=== PATIENT | male | born 1940 | race Caucasian/White ===

== ENCOUNTER → 2016-10-29 | Outpatient (CLI) | payer MEDICARE, BC ==
[~2016-10-29] MED LIST: 00186-0370-20 IH; 00186-0372-20 IH; ASPIRIN 32325 MG/TAB PO; ASPIRIN E.C. 8181 MG PO; ATROVENT INHALE14 GM IH; CEFTIN500 MG PO; CIPRO 500MG TA500 MG PO; CLARITIN 1010 MG/TAB PO; COREG 25MG25 MG/TAB PO; COREG12.5 MG PO; CPAP; DOXYCYCLINE 10100 MG PO; FERROUS SU325 MG/TAB PO; FORT1000TA; FORTAMET500 M1 PO; GLUCOPHAGE XR500 M1 PO; GLUCOPHAGE500 MG/TAB PO; NORCO 325 MG-51 TAB PO; NORVASC 10MG10 MG PO; PERCOCET 325 MG1 TA2 PO; PREDNISONE20 MG PO; PROAIR HFA0.09 MG/AC IH; THEO-24400 MG PO; THEO-DUR 2200 MG/TAB PO; VENTOLIN0.09 MG IH; XARELTO20 MG PO; ZITHROMAX 250M250 MG PO; ZITHROMAX500 M2 PO
== END ==
LOC: SUN.DIA 10:12
DX: E11.65 Type 2 diabetes mellitus with hyperglycemia (principal); Z79.84 Long term (current) use of oral hypoglycemic drugs; I10 Essential (primary) hypertension; E78.5 Hyperlipidemia, unspecified; E66.9 Obesity, unspecified; Z68.41 Body mass index [BMI] 40.0-44.9, adult; Z71.3 Dietary counseling and surveillance

== ENCOUNTER 2016-11-24 06:02 | Inpatient (IN) | payer MEDICARE, BC ==
[~2016-11-24] VITALS: Ht 167.6 cm; Wt 109.5 kg
[~2016-11-24 06:02] MED LIST changes: -00186-0370-20 IH; -00186-0372-20 IH; -ASPIRIN E.C. 8181 MG PO; -CEFTIN500 MG PO; -CIPRO 500MG TA500 MG PO; -COREG 25MG25 MG/TAB PO; -FORT1000TA; -GLUCOPHAGE XR500 M1 PO; -GLUCOPHAGE500 MG/TAB PO; -PROAIR HFA0.09 MG/AC IH; -ZITHROMAX 250M250 MG PO; -ZITHROMAX500 M2 PO
[2016-11-24] MEDS ORDERED: COREG12.5 MG PO (06:27)
[2016-11-24] MEDS ORDERED: GLUCOPHAGE XR500 M1 PO (06:27)
[2016-11-24 06:41] LABS: BASO # 0.1 (0.0-0.2); BASO % 0.6 % (0.0-2.0); EOS # 0.3 (0.0-0.7); EOS % 3.8 % (0-4.0); GRAN # 5.7 (1.4-6.5); HEMATOCRIT 42.8 % (42.0-52.0); HEMOGLOBIN 15.1 g/dl (13.5-18.0); LYMPH # 1.2 (1.2-3.4); LYMPH % 15.4 % (20.0-51.0); MEAN CELL VOLUME 93 fl (80.0-100.0); MEAN CORPUSCULAR HEMOGLOBIN 33 pg (27.0-31.0); MEAN CORPUSCULAR HGB CONC 35 g/dl (33.0-37.0); MONO # 0.7 (0.1-0.6); MONO % 8.6 % (1.7-9.3); PLATELET COUNT 118 K/mm3 (130-400); REDCELL DISTRIBUTION WIDTH-CV 14.8 % (11.5-14.5)
[2016-11-24 06:48] LABS: INR 1.1 (0.8-3.0)
[2016-11-24 06:51] LABS: PARTIAL THROMBOPLASTIN TIME 31.8 SECONDS (26.0-37.0)
[2016-11-24 06:52] LABS: BILIRUBIN,TOTAL 1.2 mg/dL (0.0-1.0); CREATININE, serum 0.8 mg/dL (0.66-1.25); POTASSIUM 4.2 mmol/L (3.4-5.0); TOTAL PROTEIN 7.1 gm/dL (6.4-8.2)
[2016-11-24 07:05] LABS: TROPONIN-I 0.016 ng/mL (0.000-0.034)
[2016-11-24] MEDS ORDERED: 00186-0370-20 IH (07:07)
[2016-11-24 08:45] VITALS: BP 141/88; PULSE 65; TEMP 97.7
[2016-11-24 10:53] VITALS: BP 148/82; PULSE 87; TEMP 97.8
[2016-11-24 12:59] LABS: MAGNESIUM 1.5 mg/dL (1.6-2.3)
[2016-11-24 13:12] LABS: B-TYPE NATRIURETIC PEPTIDE 214 pg/mL (0-450)
[2016-11-24 13:13] LABS: TROPONIN-I < 0.012 ng/mL (0.000-0.034)
[2016-11-24 15:20] VITALS: BP 186/74; PULSE 89; TEMP 98
[2016-11-24 19:54] VITALS: BP 166/103; PULSE 91; TEMP 97.9
[2016-11-24 23:41] VITALS: BP 140/60; PULSE 87; TEMP 98.2
[2016-11-25 04:06] VITALS: BP 140/68; PULSE 55; TEMP 98.2
[2016-11-25 08:32] VITALS: BP 135/81; PULSE 77; TEMP 98.4
[2016-11-25] MEDS ORDERED: 00186-0372-20 IH (11:01)
[2016-11-25 12:39] VITALS: BP 128/77; PULSE 75; TEMP 98.1
[2016-11-25 16:07] VITALS: BP 140/73; PULSE 70; TEMP 97.9
[2016-11-25 19:26] VITALS: BP 162/79; PULSE 52; TEMP 97.8
[2016-11-25 23:16] VITALS: BP 160/85; PULSE 60; TEMP 98.9
[2016-11-26 03:10] VITALS: BP 153/77; PULSE 69; TEMP 97.5
[2016-11-26 07:13] LABS: ADJUSTED CALCIUM 8.9 mg/dL (8.4-10.2); ALBUMIN 4.2 gm/dL (3.5-5.0); BILIRUBIN,TOTAL 1.8 mg/dL (0.0-1.0); CALCIUM 9.1 mg/dL (8.4-10.2); CREATININE, serum 0.81 mg/dL (0.66-1.25); POTASSIUM 3.6 mmol/L (3.4-5.0); TOTAL PROTEIN 6.9 gm/dL (6.4-8.2)
[2016-11-26 07:26] VITALS: BP 137/75; PULSE 74; TEMP 97.8
[2016-11-26] MEDS ORDERED: COREG 25MG25 MG/TAB PO (10:35)
[2016-11-26] MEDS ORDERED: ASPIRIN E.C. 8181 MG PO (11:08)
== END 2016-11-26 13:33 | disposition home or self-care (01) | DRG 292 ==
LOC: COL.ER 06:02 → MEDICAL 07:39 → COL.ER 07:39 → MEDICAL 07:40
PROVIDERS: Emergency Medicine; Internal Medicine Cardiovascular Disease
DX: I11.0 Hypertensive heart disease with heart failure (principal); J44.1 Chronic obstructive pulmonary disease with (acute) exacerbation; E11.9 Type 2 diabetes mellitus without complications; Z95.2 Presence of prosthetic heart valve; Z87.891 Personal history of nicotine dependence; I50.33 Acute on chronic diastolic (congestive) heart failure
CPT/HCPCS: OP; 99222-AI; 99233-AI; J1650; J1815; J1940

== ENCOUNTER 2016-12-13 00:44 | Emergency (ER) | payer MEDICARE, BC ==
[~2016-12-13] VITALS: Ht 170.2 cm; Wt 127.3 kg
[~2016-12-13 00:44] MED LIST changes: +00186-0370-20 IH; +00186-0372-20 IH; +ASPIRIN E.C. 8181 MG PO; +COREG 25MG25 MG/TAB PO; +GLUCOPHAGE XR500 M1 PO
[2016-12-13 00:47] VITALS: TEMP 97
[2016-12-13 01:38] LABS: BASO # 0.1 (0.0-0.2); BASO % 0.6 % (0.0-2.0); EOS # 0.4 (0.0-0.7); GRAN # 5.7 (1.4-6.5); GRAN % 67.9 % (42.2-75.2); HEMATOCRIT 41.8 % (42.0-52.0); HEMOGLOBIN 14.9 g/dl (13.5-18.0); LYMPH # 1.4 (1.2-3.4); LYMPH % 16.9 % (20.0-51.0); MEAN CELL VOLUME 94 fl (80.0-100.0); MEAN CORPUSCULAR HEMOGLOBIN 34 pg (27.0-31.0); MEAN CORPUSCULAR HGB CONC 36 g/dl (33.0-37.0); MEAN PLATELET VOLUME 10.4 fl (7.4-10.4); MONO # 0.8 (0.1-0.6); PLATELET COUNT 135 K/mm3 (130-400); RED BLOOD COUNT 4.43 M/mm3 (4.20-5.60); REDCELL DISTRIBUTION WIDTH-CV 14.9 % (11.5-14.5); WHITE BLOOD COUNT 8.5 K/mm3 (4.8-10.8)
[2016-12-13 01:47] LABS: PH 5 (5-8); SQUAMOUS EPITHELIAL 0-2 /hpf; URINE APPEARANCE Clear; URINE BACTERIA None Seen /hpf; URINE BILIRUBIN Negative (NEGATIVE); URINE BLOOD 3+ (NEGATIVE); URINE COLOR Yellow; URINE GLUCOSE 1+ (NEGATIVE); URINE KETONE Negative (NEGATIVE); URINE RBC 20-50 /hpf; URINE UROBILINOGEN Negative (NEGATIVE)
[2016-12-13 01:48] LABS: ALBUMIN 4.1 gm/dL (3.5-5.0); BILIRUBIN,TOTAL 1.2 mg/dL (0.0-1.0); CALCIUM 9.1 mg/dL (8.4-10.2); CREATININE, serum 0.73 mg/dL (0.66-1.25); MAGNESIUM 1.9 mg/dL (1.6-2.3); PHOSPHOROUS 3.9 mg/dL (2.5-4.5); POTASSIUM 4.8 mmol/L (3.4-5.0)
[2016-12-13 02:00] LABS: TROPONIN-I 0.019 ng/mL (0.000-0.034)
[2016-12-13] MEDS ORDERED: CEFTIN500 MG PO (03:56)
[2016-12-13 04:00] VITALS: BP 143/93; PULSE 59
[2016-12-13] MEDS ORDERED: FORT1000TA (04:14)
[2016-12-13] MEDS ORDERED: ASPIRIN E.C. 8181 MG PO (04:16)
[2016-12-13] MEDS ORDERED: COREG 25MG25 MG/TAB PO (04:16)
== END 2016-12-13 04:31 | disposition home or self-care (01) ==
LOC: COL.ER 00:44
PROVIDERS: Emergency Medicine
DX: J44.9 Chronic obstructive pulmonary disease, unspecified (principal); N39.0 Urinary tract infection, site not specified; R31.9 Hematuria, unspecified; E11.9 Type 2 diabetes mellitus without complications; Z95.2 Presence of prosthetic heart valve; I11.0 Hypertensive heart disease with heart failure; I50.9 Heart failure, unspecified; N20.0 Calculus of kidney; Z79.82 Long term (current) use of aspirin; Z79.84 Long term (current) use of oral hypoglycemic drugs
CPT/HCPCS: J0696; Q9967

== ENCOUNTER 2016-12-31 00:28 | Emergency (ER) | payer MEDICARE, BC ==
[~2016-12-31] VITALS: Ht 167.6 cm; Wt 79.5 kg
[~2016-12-31 00:28] MED LIST changes: -GLUCOPHAGE500 MG/TAB PO; -PROAIR HFA0.09 MG/AC IH; -ZITHROMAX 250M250 MG PO; -ZITHROMAX500 M2 PO
[2016-12-31 00:30] VITALS: TEMP 98.2
[2016-12-31 01:08] LABS: VENOUS BLOOD GAS BE 0.9 (-4-4); VENOUS BLOOD GAS SAO2 61.8 % (60-80)
[2016-12-31 01:09] LABS: VENOUS BLOOD GAS SITE VENIPUNCTURE
[2016-12-31 01:10] LABS: BASO # 0.1 (0.0-0.2); BASO % 0.8 % (0.0-2.0); EOS # 0.3 (0.0-0.7); EOS % 4.2 % (0-4.0); GRAN # 4.9 (1.4-6.5); GRAN % 64.1 % (42.2-75.2); HEMOGLOBIN 15.2 g/dl (13.5-18.0); LYMPH # 1.6 (1.2-3.4); LYMPH % 21.1 % (20.0-51.0); MEAN CELL VOLUME 94 fl (80.0-100.0); MEAN CORPUSCULAR HEMOGLOBIN 34 pg (27.0-31.0); MEAN CORPUSCULAR HGB CONC 36 g/dl (33.0-37.0); MEAN PLATELET VOLUME 10.2 fl (7.4-10.4); MONO # 0.7 (0.1-0.6); PLATELET COUNT 139 K/mm3 (130-400); RED BLOOD COUNT 4.46 M/mm3 (4.20-5.60); REDCELL DISTRIBUTION WIDTH-CV 14.1 % (11.5-14.5); WHITE BLOOD COUNT 7.6 K/mm3 (4.8-10.8)
[2016-12-31 01:23] LABS: CALCIUM 8.8 mg/dL (8.4-10.2); CREATININE, serum 0.74 mg/dL (0.66-1.25); POTASSIUM 4.4 mmol/L (3.4-5.0)
[2016-12-31] MEDS ORDERED: COREG12.5 MG PO (01:23)
[2016-12-31] MEDS ORDERED: THEO-DUR 2200 MG/TAB PO (01:25)
[2016-12-31] MEDS ORDERED: GLUCOPHAGE XR500 M1 PO (01:27)
[2016-12-31] MEDS ORDERED: GLUCOPHAGE500 MG/TAB PO (01:28)
[2016-12-31 01:34] LABS: TROPONIN-I 0.015 ng/mL (0.000-0.034)
[2016-12-31] MEDS ORDERED: ATROVENT INHALE14 GM IH (01:50)
[2016-12-31] MEDS ORDERED: PREDNISONE20 MG PO (01:51)
[2016-12-31] MEDS ORDERED: DOXYCYCLINE 10100 MG PO (01:51)
[2016-12-31 02:58] VITALS: BP 148/84; PULSE 64
== END 2016-12-31 02:35 | disposition home or self-care (01) ==
LOC: COL.ER 00:28
PROVIDERS: Emergency Medicine
DX: J44.0 Chronic obstructive pulmonary disease with (acute) lower respiratory infection (principal); J20.9 Acute bronchitis, unspecified; J44.1 Chronic obstructive pulmonary disease with (acute) exacerbation; I10 Essential (primary) hypertension; E11.9 Type 2 diabetes mellitus without complications; Z87.891 Personal history of nicotine dependence
CPT/HCPCS: J7512

== ENCOUNTER → 2016-12-31 | Outpatient (CLI) | payer MEDICARE, BC ==
[~2016-12-31] MED LIST changes: +CEFTIN500 MG PO; +FORT1000TA; +GLUCOPHAGE500 MG/TAB PO; +PROAIR HFA0.09 MG/AC IH; +ZITHROMAX 250M250 MG PO; +ZITHROMAX500 M2 PO
== END ==
LOC: SUN.DIA 09:33
DX: E11.65 Type 2 diabetes mellitus with hyperglycemia (principal); E66.9 Obesity, unspecified; Z68.42 Body mass index [BMI] 45.0-49.9, adult; Z71.3 Dietary counseling and surveillance; E78.5 Hyperlipidemia, unspecified; I10 Essential (primary) hypertension; G47.33 Obstructive sleep apnea (adult) (pediatric); J44.9 Chronic obstructive pulmonary disease, unspecified; I48.0 Paroxysmal atrial fibrillation

== ENCOUNTER 2017-01-10 01:15 | Emergency (ER) | payer MEDICARE, BC ==
[~2017-01-10] VITALS: Ht 170.2 cm; Wt 125.0 kg
[~2017-01-10 01:15] MED LIST changes: +GLUCOPHAGE500 MG/TAB PO
[2017-01-10] MEDS ORDERED: 00186-0372-20 IH (01:33)
[2017-01-10 01:35] LABS: BASO # 0.1 (0.0-0.2); BASO % 0.5 % (0.0-2.0); EOS # 0.2 (0.0-0.7); EOS % 1.8 % (0-4.0); GRAN # 8.2 (1.4-6.5); GRAN % 73.2 % (42.2-75.2); HEMATOCRIT 47.4 % (42.0-52.0); LYMPH # 1.4 (1.2-3.4); LYMPH % 12.1 % (20.0-51.0); MEAN CELL VOLUME 93 fl (80.0-100.0); MEAN CORPUSCULAR HEMOGLOBIN 34 pg (27.0-31.0); MEAN CORPUSCULAR HGB CONC 36 g/dl (33.0-37.0); MEAN PLATELET VOLUME 10.1 fl (7.4-10.4); MONO # 1.3 (0.1-0.6); MONO % 11.7 % (1.7-9.3); PLATELET COUNT 131 K/mm3 (130-400); RED BLOOD COUNT 5.08 M/mm3 (4.20-5.60); REDCELL DISTRIBUTION WIDTH-CV 13.2 % (11.5-14.5); WHITE BLOOD COUNT 11.3 K/mm3 (4.8-10.8)
[2017-01-10 01:45] LABS: ADJUSTED CALCIUM 8.6 mg/dL (8.4-10.2); ALBUMIN 4.4 gm/dL (3.5-5.0); BILIRUBIN,TOTAL 1.5 mg/dL (0.0-1.0); CALCIUM 8.9 mg/dL (8.4-10.2); CREATININE, serum 0.82 mg/dL (0.66-1.25); INR 1.1 (0.8-3.0); POTASSIUM 4.2 mmol/L (3.4-5.0); PROTHROMBIN TIME 12.3 SECONDS (9.7-12.8); TOTAL PROTEIN 7.4 gm/dL (6.4-8.2)
[2017-01-10 01:48] LABS: PARTIAL THROMBOPLASTIN TIME 30.6 SECONDS (26.0-37.0)
[2017-01-10 01:57] LABS: TROPONIN-I 0.023 ng/mL (0.000-0.034)
[2017-01-10 02:12] LABS: ARTERIAL BLD GAS O2 SATURATION 95.1 % (92-100); ARTERIAL BLD GAS TCO2 CT 26.8; ARTERIAL BLOOD GAS BASE EXCESS 1.6 (-2-2); ARTERIAL BLOOD GAS HCO3 25.6 meq/L (22-26); ARTERIAL BLOOD GAS PHT 7.44 C (7.35-7.45); ARTERIAL BLOOD GAS PO2 76.3 mmHg (80-100); ARTERIAL BLOOD GAS PO2T 76.3 (80-100); ARTERIAL BLOOD GAS pH 7.44 (7.35-7.45); OXYHEMOGLOBIN 93.4 %
[2017-01-10 02:14] LABS: ALLEN TEST YES; ALLENS TEST RESULT PASS; ATS? YES
[2017-01-10 03:06] LABS: PH 5 (5-8); URINE APPEARANCE Hazy; URINE BILIRUBIN Negative (NEGATIVE); URINE BLOOD 3+ (NEGATIVE); URINE COLOR Yellow; URINE GLUCOSE 2+ (NEGATIVE); URINE KETONE Negative (NEGATIVE); URINE RBC 20-50 /hpf; URINE UROBILINOGEN Negative (NEGATIVE); URINE WBC 0-2 /hpf
[2017-01-10 03:55] VITALS: BP 118/89; PULSE 72; TEMP 97.7
== END 2017-01-10 04:00 | disposition home or self-care (01) ==
LOC: COL.ER 01:15
PROVIDERS: Emergency Medicine
DX: R06.02 Shortness of breath (principal); I48.91 Unspecified atrial fibrillation; J44.9 Chronic obstructive pulmonary disease, unspecified; I11.0 Hypertensive heart disease with heart failure; I50.9 Heart failure, unspecified; E11.9 Type 2 diabetes mellitus without complications; Z79.84 Long term (current) use of oral hypoglycemic drugs
CPT/HCPCS: G0463; J0696; J1940; J7030

== ENCOUNTER 2017-02-18 13:05 | Emergency (ER) | payer MEDICARE, BC ==
[~2017-02-18] VITALS: Ht 167.6 cm; Wt 127.3 kg
[2017-02-18 13:07] VITALS: TEMP 98
[2017-02-18 13:39] LABS: BASO # 0.1 (0.0-0.2); BASO % 0.7 % (0.0-2.0); EOS # 0.4 (0.0-0.7); EOS % 5.3 % (0-4.0); GRAN # 6.1 (1.4-6.5); GRAN % 73.2 % (42.2-75.2); HEMATOCRIT 44.9 % (42.0-52.0); HEMOGLOBIN 15.8 g/dl (13.5-18.0); LYMPH % 11.9 % (20.0-51.0); MEAN CELL VOLUME 95 fl (80.0-100.0); MEAN CORPUSCULAR HEMOGLOBIN 33 pg (27.0-31.0); MEAN CORPUSCULAR HGB CONC 35 g/dl (33.0-37.0); MEAN PLATELET VOLUME 10.2 fl (7.4-10.4); MONO # 0.7 (0.1-0.6); MONO % 8.4 % (1.7-9.3); PLATELET COUNT 131 K/mm3 (130-400); RED BLOOD COUNT 4.75 M/mm3 (4.20-5.60); REDCELL DISTRIBUTION WIDTH-CV 13.9 % (11.5-14.5); WHITE BLOOD COUNT 8.3 K/mm3 (4.8-10.8)
[2017-02-18 13:50] LABS: ADJUSTED CALCIUM 8.7 mg/dL (8.4-10.2); ALBUMIN 4.2 gm/dL (3.5-5.0); CALCIUM 8.9 mg/dL (8.4-10.2); CREATININE, serum 0.78 mg/dL (0.66-1.25); POTASSIUM 4.3 mmol/L (3.4-5.0)
[2017-02-18 14:01] LABS: TROPONIN-I 0.017 ng/mL (0.000-0.034)
[2017-02-18 14:41] VITALS: BP 145/83; PULSE 72
[2017-02-18] MEDS ORDERED: PREDNISONE20 MG PO (14:45)
== END 2017-02-18 15:00 | disposition home or self-care (01) ==
LOC: COL.ER 13:05
PROVIDERS: Emergency Medicine
DX: J44.1 Chronic obstructive pulmonary disease with (acute) exacerbation (principal); T48.996A Underdosing of other agents primarily acting on the respiratory system, initial encounter; Z91.138 Patient's unintentional underdosing of medication regimen for other reason; E11.9 Type 2 diabetes mellitus without complications; I10 Essential (primary) hypertension; Z79.84 Long term (current) use of oral hypoglycemic drugs
CPT/HCPCS: J7512

== ENCOUNTER → 2017-03-04 | Outpatient (CLI) | payer MEDICARE, BC ==
[~2017-03-04] MED LIST changes: +CIPRO 500MG TA500 MG PO; +PROAIR HFA0.09 MG/AC IH; +ZITHROMAX 250M250 MG PO; +ZITHROMAX500 M2 PO
== END ==
LOC: SUN.DIA 09:35
DX: E11.9 Type 2 diabetes mellitus without complications (principal); E78.5 Hyperlipidemia, unspecified; I10 Essential (primary) hypertension; E66.9 Obesity, unspecified; Z68.41 Body mass index [BMI] 40.0-44.9, adult; Z71.3 Dietary counseling and surveillance; Z87.891 Personal history of nicotine dependence
CPT/HCPCS: G0270

== ENCOUNTER 2017-03-06 03:34 | Emergency (ER) | payer MEDICARE, BC ==
[~2017-03-06] VITALS: Ht 170.2 cm; Wt 125.0 kg
[~2017-03-06 03:34] MED LIST changes: -CIPRO 500MG TA500 MG PO; -PROAIR HFA0.09 MG/AC IH; -ZITHROMAX 250M250 MG PO; -ZITHROMAX500 M2 PO
[2017-03-06 03:38] VITALS: BP 144/66; TEMP 98.7
[2017-03-06 04:32] LABS: VENOUS BLOOD GAS BE 2.1 (-4-4); VENOUS BLOOD GAS SAO2 85.7 % (60-80)
[2017-03-06 04:32] LABS: BASO # 0.1 (0.0-0.2); BASO % 0.6 % (0.0-2.0); EOS # 0.4 (0.0-0.7); EOS % 4.6 % (0-4.0); GRAN # 5.9 (1.4-6.5); HEMATOCRIT 43.2 % (42.0-52.0); HEMOGLOBIN 15.4 g/dl (13.5-18.0); LYMPH # 1.3 (1.2-3.4); LYMPH % 15.2 % (20.0-51.0); MEAN CELL VOLUME 94 fl (80.0-100.0); MEAN CORPUSCULAR HEMOGLOBIN 33 pg (27.0-31.0); MEAN CORPUSCULAR HGB CONC 36 g/dl (33.0-37.0); MEAN PLATELET VOLUME 10.2 fl (7.4-10.4); MONO # 0.8 (0.1-0.6); MONO % 9.2 % (1.7-9.3); PLATELET COUNT 138 K/mm3 (130-400); RED BLOOD COUNT 4.61 M/mm3 (4.20-5.60); REDCELL DISTRIBUTION WIDTH-CV 13.6 % (11.5-14.5); WHITE BLOOD COUNT 8.4 K/mm3 (4.8-10.8)
[2017-03-06 04:33] LABS: VENOUS BLOOD GAS SITE VENIPUNCTURE
[2017-03-06 04:40] LABS: CALCIUM 8.8 mg/dL (8.4-10.2); CREATININE, serum 0.75 mg/dL (0.66-1.25); POTASSIUM 4.1 mmol/L (3.4-5.0)
[2017-03-06 04:52] LABS: TROPONIN-I 0.016 ng/mL (0.000-0.034)
[2017-03-06] MEDS ORDERED: PREDNISONE20 MG PO (05:12)
[2017-03-06] MEDS ORDERED: ZITHROMAX 250M250 MG PO (05:12)
[2017-03-06] MEDS ORDERED: ATROVENT INHALE14 GM IH (05:12)
[2017-03-06 05:31] VITALS: PULSE 69
== END 2017-03-06 05:36 | disposition home or self-care (01) ==
LOC: COL.ER 03:34
PROVIDERS: Emergency Medicine
DX: J44.1 Chronic obstructive pulmonary disease with (acute) exacerbation (principal); E11.9 Type 2 diabetes mellitus without complications; I10 Essential (primary) hypertension; E78.5 Hyperlipidemia, unspecified; G47.33 Obstructive sleep apnea (adult) (pediatric); Z90.49 Acquired absence of other specified parts of digestive tract; Z79.82 Long term (current) use of aspirin; Z79.84 Long term (current) use of oral hypoglycemic drugs
CPT/HCPCS: J1940; J7512

== ENCOUNTER 2017-03-22 09:17 | Emergency (ER) | payer MEDICARE, BC ==
[~2017-03-22] VITALS: Ht 167.6 cm; Wt 125.0 kg
[~2017-03-22 09:17] MED LIST changes: +ZITHROMAX 250M250 MG PO
[2017-03-22 09:19] VITALS: BP 137/60; TEMP 97.8
[2017-03-22 11:15] VITALS: PULSE 72
== END 2017-03-22 11:14 | disposition home or self-care (01) ==
LOC: COL.ER 09:17
DX: K59.00 Constipation, unspecified (principal); E11.9 Type 2 diabetes mellitus without complications; J44.9 Chronic obstructive pulmonary disease, unspecified; I10 Essential (primary) hypertension; Z87.19 Personal history of other diseases of the digestive system; Z79.84 Long term (current) use of oral hypoglycemic drugs; Z79.82 Long term (current) use of aspirin

== ENCOUNTER 2017-03-25 03:29 | Emergency (ER) | payer MEDICARE, BC ==
[~2017-03-25] VITALS: Ht 167.6 cm; Wt 120.5 kg
[2017-03-25 03:32] VITALS: TEMP 97.7
[2017-03-25 04:09] LABS: BASO # 0.1 (0.0-0.2); BASO % 0.8 % (0.0-2.0); EOS # 0.3 (0.0-0.7); EOS % 4.2 % (0-4.0); GRAN # 5.2 (1.4-6.5); GRAN % 68.9 % (42.2-75.2); HEMATOCRIT 42.9 % (42.0-52.0); HEMOGLOBIN 15.3 g/dl (13.5-18.0); LYMPH # 1.2 (1.2-3.4); LYMPH % 15.9 % (20.0-51.0); MEAN CELL VOLUME 94 fl (80.0-100.0); MEAN CORPUSCULAR HEMOGLOBIN 34 pg (27.0-31.0); MEAN CORPUSCULAR HGB CONC 36 g/dl (33.0-37.0); MEAN PLATELET VOLUME 9.9 fl (7.4-10.4); MONO # 0.7 (0.1-0.6); MONO % 9.7 % (1.7-9.3); PLATELET COUNT 130 K/mm3 (130-400); RED BLOOD COUNT 4.55 M/mm3 (4.20-5.60); REDCELL DISTRIBUTION WIDTH-CV 13.8 % (11.5-14.5); WHITE BLOOD COUNT 7.6 K/mm3 (4.8-10.8)
[2017-03-25 04:15] LABS: PROTHROMBIN TIME 11.4 SECONDS (9.7-12.8)
[2017-03-25 04:17] LABS: ADJUSTED CALCIUM 8.8 mg/dL (8.4-10.2); CALCIUM 8.8 mg/dL (8.4-10.2); CREATININE, serum 0.76 mg/dL (0.66-1.25); PARTIAL THROMBOPLASTIN TIME 31.9 SECONDS (26.0-37.0); POTASSIUM 4.2 mmol/L (3.4-5.0); TOTAL PROTEIN 6.7 gm/dL (6.4-8.2)
[2017-03-25 04:29] LABS: TROPONIN-I 0.018 ng/mL (0.000-0.034)
[2017-03-25] MEDS ORDERED: PREDNISONE20 MG PO (07:02)
[2017-03-25] MEDS ORDERED: ZITHROMAX500 M2 PO (07:02)
[2017-03-25 07:12] VITALS: BP 138/68; PULSE 78
== END 2017-03-25 07:12 | disposition home or self-care (01) ==
LOC: COL.ER 03:29
PROVIDERS: Emergency Medicine
DX: J44.1 Chronic obstructive pulmonary disease with (acute) exacerbation (principal); I10 Essential (primary) hypertension; E78.5 Hyperlipidemia, unspecified; E11.9 Type 2 diabetes mellitus without complications; Z90.49 Acquired absence of other specified parts of digestive tract; Z79.84 Long term (current) use of oral hypoglycemic drugs; Z79.82 Long term (current) use of aspirin
CPT/HCPCS: J2930

== ENCOUNTER 2017-04-13 05:08 | Emergency (ER) | payer MEDICARE, BC ==
[~2017-04-13] VITALS: Ht 167.6 cm; Wt 125.5 kg
[~2017-04-13 05:08] MED LIST changes: +ZITHROMAX500 M2 PO
[2017-04-13 05:12] VITALS: TEMP 98
[2017-04-13 05:52] LABS: BASO % 0.6 % (0.0-2.0); EOS # 0.2 (0.0-0.7); EOS % 3.3 % (0-4.0); GRAN # 5.1 (1.4-6.5); GRAN % 71.1 % (42.2-75.2); HEMATOCRIT 41.6 % (42.0-52.0); HEMOGLOBIN 14.8 g/dl (13.5-18.0); LYMPH # 1.2 (1.2-3.4); LYMPH % 16.2 % (20.0-51.0); MEAN CELL VOLUME 93 fl (80.0-100.0); MEAN CORPUSCULAR HEMOGLOBIN 33 pg (27.0-31.0); MEAN CORPUSCULAR HGB CONC 36 g/dl (33.0-37.0); MEAN PLATELET VOLUME 9.9 fl (7.4-10.4); MONO # 0.6 (0.1-0.6); MONO % 8.4 % (1.7-9.3); PLATELET COUNT 136 K/mm3 (130-400); RED BLOOD COUNT 4.49 M/mm3 (4.20-5.60); REDCELL DISTRIBUTION WIDTH-CV 13.8 % (11.5-14.5); WHITE BLOOD COUNT 7.2 K/mm3 (4.8-10.8)
[2017-04-13 06:05] LABS: CALCIUM 8.8 mg/dL (8.4-10.2); CREATININE, serum 0.67 mg/dL (0.66-1.25); POTASSIUM 4.2 mmol/L (3.4-5.0)
[2017-04-13] MEDS ORDERED: PREDNISONE20 MG PO (06:11)
[2017-04-13] MEDS ORDERED: DOXYCYCLINE 10100 MG PO (06:11)
[2017-04-13 06:17] LABS: TROPONIN-I 0.015 ng/mL (0.000-0.034)
[2017-04-13 06:29] VITALS: BP 140/72; PULSE 88
== END 2017-04-13 06:42 | disposition home or self-care (01) ==
LOC: COL.ER 05:08
PROVIDERS: Emergency Medicine
DX: J44.1 Chronic obstructive pulmonary disease with (acute) exacerbation (principal); E11.9 Type 2 diabetes mellitus without complications; Z79.84 Long term (current) use of oral hypoglycemic drugs; Z79.82 Long term (current) use of aspirin; Z87.891 Personal history of nicotine dependence; Z90.49 Acquired absence of other specified parts of digestive tract; Z95.2 Presence of prosthetic heart valve
CPT/HCPCS: J7512

== ENCOUNTER 2017-04-15 05:59 | Emergency (ER) | payer MEDICARE, BC ==
[~2017-04-15] VITALS: Ht 167.6 cm; Wt 123.6 kg
[2017-04-15 06:00] VITALS: TEMP 97.9
[2017-04-15 06:44] LABS: PH 5 (5-8); URINE BILIRUBIN Negative (NEGATIVE); URINE BLOOD 3+ (NEGATIVE); URINE GLUCOSE 3+ (NEGATIVE); URINE KETONE Negative (NEGATIVE); URINE UROBILINOGEN Negative (NEGATIVE)
[2017-04-15 06:45] LABS: URINE APPEARANCE Turbid; URINE COLOR Red
[2017-04-15 07:15] LABS: SQUAMOUS EPITHELIAL None Seen /hpf; URINE BACTERIA None Seen /hpf; URINE RBC >50 /hpf; URINE WBC None Seen /hpf
[2017-04-15 07:52] LABS: BASO % 0.6 % (0.0-2.0); EOS # 0.3 (0.0-0.7); EOS % 3.6 % (0-4.0); GRAN # 5.1 (1.4-6.5); GRAN % 72.1 % (42.2-75.2); HEMATOCRIT 42.3 % (42.0-52.0); HEMOGLOBIN 14.9 g/dl (13.5-18.0); LYMPH # 1.1 (1.2-3.4); MEAN CELL VOLUME 95 fl (80.0-100.0); MEAN CORPUSCULAR HEMOGLOBIN 34 pg (27.0-31.0); MEAN CORPUSCULAR HGB CONC 35 g/dl (33.0-37.0); MONO # 0.6 (0.1-0.6); MONO % 8.3 % (1.7-9.3); PLATELET COUNT 126 K/mm3 (130-400); RED BLOOD COUNT 4.45 M/mm3 (4.20-5.60); REDCELL DISTRIBUTION WIDTH-CV 14.3 % (11.5-14.5)
[2017-04-15 07:59] LABS: PROTHROMBIN TIME 11.6 SECONDS (9.7-12.8)
[2017-04-15 08:02] LABS: ADJUSTED CALCIUM 8.8 mg/dL (8.4-10.2); ALBUMIN 3.8 gm/dL (3.5-5.0); CALCIUM 8.6 mg/dL (8.4-10.2); CREATININE, serum 0.69 mg/dL (0.66-1.25); TOTAL PROTEIN 6.7 gm/dL (6.4-8.2)
[2017-04-15 08:13] LABS: TROPONIN-I 0.013 ng/mL (0.000-0.034)
[2017-04-15 08:58] VITALS: BP 139/87; PULSE 74
== END 2017-04-15 09:30 | disposition home or self-care (01) ==
LOC: COL.ER 05:59
PROVIDERS: Emergency Medicine
DX: R31.0 Gross hematuria (principal); N32.9 Bladder disorder, unspecified; J44.9 Chronic obstructive pulmonary disease, unspecified; F03.90 Unspecified dementia, unspecified severity, without behavioral disturbance, psychotic disturbance, mood disturbance, and anxiety; I10 Essential (primary) hypertension
CPT/HCPCS: J7030; J7512; Q9967

== ENCOUNTER 2017-04-24 09:30 | Observation (INO) | payer MEDICARE, BC ==
[~2017-04-24] VITALS: Ht 167.6 cm; Wt 122.9 kg
[2017-04-24] MEDS ORDERED: 00186-0372-20 IH (10:17)
[2017-04-24] MEDS ORDERED: ATROVENT INHALE14 GM IH (10:25)
[2017-04-24] MEDS ORDERED: PROAIR HFA0.09 MG/AC IH (10:26)
[2017-04-24 11:23] VITALS: BP 150/87; PULSE 73; TEMP 97.9
[2017-04-24 16:30] VITALS: BP 159/83; PULSE 74
[2017-04-24 21:30] VITALS: BP 173/98; PULSE 121; TEMP 98.2
[2017-04-24 22:11] LABS: ARTERIAL BLD GAS O2 SATURATION 95.4 % (92-100); ARTERIAL BLD GAS TCO2 CT 29.8; ARTERIAL BLOOD GAS BASE EXCESS -0.4 (-2-2); ARTERIAL BLOOD GAS PO2 80.6 mmHg (80-100); ARTERIAL BLOOD GAS pH 7.28 (7.35-7.45); OXYHEMOGLOBIN 93.8 %
[2017-04-24 22:12] LABS: ATS? YES
[2017-04-24 22:13] LABS: CALCIUM 8.3 mg/dL (8.4-10.2); CREATININE, serum 0.76 mg/dL (0.66-1.25); POTASSIUM 4.6 mmol/L (3.4-5.0)
[2017-04-25] VITALS (7 sets, daily range): BP systolic 116–152; BP diastolic 55–91; PULSE 86–98; TEMP 97.4–98.6
[2017-04-25 01:32] LABS: ARTERIAL BLD GAS O2 SATURATION 96.8 % (92-100); ARTERIAL BLD GAS TCO2 CT 29.2; ARTERIAL BLOOD GAS BASE EXCESS 0.1 (-2-2); ARTERIAL BLOOD GAS HCO3 27.5 meq/L (22-26); ARTERIAL BLOOD GAS PO2 94.7 mmHg (80-100); ARTERIAL BLOOD GAS pH 7.32 (7.35-7.45); OXYHEMOGLOBIN 95.2 %
[2017-04-25 01:33] LABS: ATS? YES
[2017-04-25 06:52] LABS: HEMATOCRIT 41.6 % (42.0-52.0); HEMOGLOBIN 14.3 g/dl (13.5-18.0); MEAN CELL VOLUME 96 fl (80.0-100.0); MEAN CORPUSCULAR HEMOGLOBIN 33 pg (27.0-31.0); MEAN CORPUSCULAR HGB CONC 34 g/dl (33.0-37.0); MEAN PLATELET VOLUME 10.7 fl (7.4-10.4); PLATELET COUNT 153 K/mm3 (130-400); RED BLOOD COUNT 4.35 M/mm3 (4.20-5.60); REDCELL DISTRIBUTION WIDTH-CV 14.4 % (11.5-14.5); WHITE BLOOD COUNT 9.8 K/mm3 (4.8-10.8)
[2017-04-25 11:13] LABS: ARTERIAL BLD GAS O2 SATURATION 91.8 % (92-100); ARTERIAL BLD GAS TCO2 CT 32.4; ARTERIAL BLOOD GAS BASE EXCESS 3.6 (-2-2); ARTERIAL BLOOD GAS HCO3 30.7 meq/L (22-26); ARTERIAL BLOOD GAS PHT 7.36 C (7.35-7.45); ARTERIAL BLOOD GAS PO2 63.4 mmHg (80-100); ARTERIAL BLOOD GAS PO2T 63.4 (80-100); ARTERIAL BLOOD GAS pH 7.36 (7.35-7.45); OXYHEMOGLOBIN 90.2 %
[2017-04-25 11:17] LABS: ATS? YES
[2017-04-26 05:43] VITALS: BP 132/78; PULSE 88; TEMP 98.3
[2017-04-26 09:05] LABS: BASO % 0.3 % (0.0-2.0); EOS # 0.2 (0.0-0.7); EOS % 1.3 % (0-4.0); GRAN # 8.8 (1.4-6.5); GRAN % 77.8 % (42.2-75.2); HEMOGLOBIN 14.2 g/dl (13.5-18.0); MEAN CELL VOLUME 94 fl (80.0-100.0); MEAN CORPUSCULAR HEMOGLOBIN 33 pg (27.0-31.0); MEAN CORPUSCULAR HGB CONC 36 g/dl (33.0-37.0); MEAN PLATELET VOLUME 10.5 fl (7.4-10.4); MONO # 1.3 (0.1-0.6); MONO % 11.2 % (1.7-9.3); PLATELET COUNT 155 K/mm3 (130-400); RED BLOOD COUNT 4.26 M/mm3 (4.20-5.60); REDCELL DISTRIBUTION WIDTH-CV 14.3 % (11.5-14.5); WHITE BLOOD COUNT 11.4 K/mm3 (4.8-10.8)
[2017-04-26 09:17] LABS: CALCIUM 8.7 mg/dL (8.4-10.2); CREATININE, serum 0.79 mg/dL (0.66-1.25); POTASSIUM 3.9 mmol/L (3.4-5.0)
[2017-04-26 10:06] VITALS: BP 135/66; PULSE 90; TEMP 98.9
[2017-04-26 14:08] VITALS: BP 128/66; PULSE 75; TEMP 98.4
== END 2017-04-26 15:30 | disposition home or self-care (01) ==
LOC: SDCO 09:30 → SURG 16:35 → SDCO 04-25 15:13 → SURG 04-25 15:14
PROVIDERS: Nurse Practitioner Family; Urology
DX: N40.1 Benign prostatic hyperplasia with lower urinary tract symptoms (principal); C67.9 Malignant neoplasm of bladder, unspecified; J44.9 Chronic obstructive pulmonary disease, unspecified; J96.91 Respiratory failure, unspecified with hypoxia; I48.0 Paroxysmal atrial fibrillation; E11.9 Type 2 diabetes mellitus without complications; G47.33 Obstructive sleep apnea (adult) (pediatric); E66.01 Morbid (severe) obesity due to excess calories; I35.0 Nonrheumatic aortic (valve) stenosis; I11.0 Hypertensive heart disease with heart failure; I50.9 Heart failure, unspecified; E66.9 Obesity, unspecified; I25.10 Atherosclerotic heart disease of native coronary artery without angina pectoris; Z68.41 Body mass index [BMI] 40.0-44.9, adult; Z79.84 Long term (current) use of oral hypoglycemic drugs; Z79.01 Long term (current) use of anticoagulants; Z87.891 Personal history of nicotine dependence; Z95.2 Presence of prosthetic heart valve; Z82.49 Family history of ischemic heart disease and other diseases of the circulatory system
CPT/HCPCS: OP; 99222; 99233-AI; G0378; G8978-GP; G8979-GP; J0690; J1100; J1630; J1815; J1940; J2060; J2175; J2250; J2270; J2405; J2704; J3010; J7030

== ENCOUNTER 2017-05-12 04:34 | Emergency (ER) | payer MEDICARE, BC ==
[~2017-05-12] VITALS: Ht 167.6 cm; Wt 124.0 kg
[~2017-05-12 04:34] MED LIST changes: +PROAIR HFA0.09 MG/AC IH
[2017-05-12 04:37] VITALS: TEMP 98.1
[2017-05-12 05:52] LABS: PH 6 (5-8); SQUAMOUS EPITHELIAL None Seen /hpf; URINE APPEARANCE Cloudy; URINE BACTERIA Occasional /hpf; URINE BILIRUBIN Negative (NEGATIVE); URINE BLOOD 3+ (NEGATIVE); URINE COLOR Amber; URINE GLUCOSE 3+ (NEGATIVE); URINE KETONE Negative (NEGATIVE); URINE RBC >50 /hpf; URINE UROBILINOGEN Negative (NEGATIVE)
[2017-05-12 05:53] LABS: URINE WBC >50 /hpf
[2017-05-12] MEDS ORDERED: CIPRO 500MG TA500 MG PO (05:58)
[2017-05-12 06:30] VITALS: BP 166/95; PULSE 79
== END 2017-05-12 06:30 | disposition home or self-care (01) ==
LOC: COL.ER 04:34
PROVIDERS: Emergency Medicine
DX: K59.00 Constipation, unspecified (principal); Z79.82 Long term (current) use of aspirin; Z79.84 Long term (current) use of oral hypoglycemic drugs

== ENCOUNTER 2017-05-19 05:01 | Emergency (ER) | payer MEDICARE, BC ==
[~2017-05-19] VITALS: Ht 167.6 cm; Wt 56.2 kg
[~2017-05-19 05:01] MED LIST changes: +CIPRO 500MG TA500 MG PO
[2017-05-19 05:04] VITALS: TEMP 98.3
[2017-05-19 05:35] LABS: BASO # 0.1 (0.0-0.2); BASO % 0.8 % (0.0-2.0); EOS # 0.5 (0.0-0.7); GRAN # 4.6 (1.4-6.5); GRAN % 64.5 % (42.2-75.2); HEMATOCRIT 42.6 % (42.0-52.0); HEMOGLOBIN 14.6 g/dl (13.5-18.0); LYMPH # 1.2 (1.2-3.4); LYMPH % 17.2 % (20.0-51.0); MEAN CELL VOLUME 96 fl (80.0-100.0); MEAN CORPUSCULAR HEMOGLOBIN 33 pg (27.0-31.0); MEAN CORPUSCULAR HGB CONC 34 g/dl (33.0-37.0); MONO # 0.7 (0.1-0.6); MONO % 10.1 % (1.7-9.3); PLATELET COUNT 144 K/mm3 (130-400); RED BLOOD COUNT 4.46 M/mm3 (4.20-5.60); REDCELL DISTRIBUTION WIDTH-CV 14.7 % (11.5-14.5); WHITE BLOOD COUNT 7.2 K/mm3 (4.8-10.8)
[2017-05-19 05:42] LABS: PROTHROMBIN TIME 11.6 SECONDS (9.7-12.8)
[2017-05-19 05:48] LABS: ADJUSTED CALCIUM 8.8 mg/dL (8.4-10.2); ALBUMIN 4.1 gm/dL (3.5-5.0); BILIRUBIN,TOTAL 0.9 mg/dL (0.0-1.0); CALCIUM 8.9 mg/dL (8.4-10.2); CREATININE, serum 0.71 mg/dL (0.66-1.25); POTASSIUM 4.3 mmol/L (3.4-5.0); TOTAL PROTEIN 6.9 gm/dL (6.4-8.2)
[2017-05-19 06:00] LABS: TROPONIN-I 0.02 ng/mL (0.000-0.034)
[2017-05-19] MEDS ORDERED: PREDNISONE20 MG PO (06:21)
[2017-05-19 06:51] VITALS: BP 128/89; PULSE 76
== END 2017-05-19 06:51 | disposition home or self-care (01) ==
LOC: COL.ER 05:01
PROVIDERS: Emergency Medicine
DX: J44.1 Chronic obstructive pulmonary disease with (acute) exacerbation (principal); E11.9 Type 2 diabetes mellitus without complications; I10 Essential (primary) hypertension; Z87.891 Personal history of nicotine dependence; Z95.2 Presence of prosthetic heart valve; Z90.89 Acquired absence of other organs; Z98.890 Other specified postprocedural states
CPT/HCPCS: J2930

== ENCOUNTER 2017-05-24 03:43 | Inpatient (IN) | payer MEDICARE, BC ==
[~2017-05-24] VITALS: Ht 167.6 cm; Wt 121.6 kg
[2017-05-24 04:42] LABS: PH 6 (5-8); SQUAMOUS EPITHELIAL None Seen /hpf; URINE BACTERIA None Seen /hpf; URINE BILIRUBIN Negative (NEGATIVE); URINE GLUCOSE 3+ (NEGATIVE); URINE KETONE Negative (NEGATIVE); URINE UROBILINOGEN Negative (NEGATIVE)
[2017-05-24 04:44] LABS: BASO # 0.1 (0.0-0.2); BASO % 0.5 % (0.0-2.0); EOS % 0.4 % (0-4.0); GRAN # 9.3 (1.4-6.5); GRAN % 83.5 % (42.2-75.2); HEMATOCRIT 44.3 % (42.0-52.0); HEMOGLOBIN 15.3 g/dl (13.5-18.0); LYMPH % 9.2 % (20.0-51.0); MEAN CELL VOLUME 95 fl (80.0-100.0); MEAN CORPUSCULAR HEMOGLOBIN 33 pg (27.0-31.0); MEAN CORPUSCULAR HGB CONC 35 g/dl (33.0-37.0); MEAN PLATELET VOLUME 10.2 fl (7.4-10.4); MONO # 0.6 (0.1-0.6); MONO % 5.7 % (1.7-9.3); PLATELET COUNT 171 K/mm3 (130-400); RED BLOOD COUNT 4.68 M/mm3 (4.20-5.60); REDCELL DISTRIBUTION WIDTH-CV 14.4 % (11.5-14.5); WHITE BLOOD COUNT 11.1 K/mm3 (4.8-10.8)
[2017-05-24 04:50] LABS: URINE APPEARANCE Turbid; URINE BLOOD 3+ (NEGATIVE); URINE COLOR Red
[2017-05-24 04:51] LABS: URINE RBC >50 /hpf
[2017-05-24 05:01] LABS: ADJUSTED CALCIUM 9.4 mg/dL (8.4-10.2); ALBUMIN 4.1 gm/dL (3.5-5.0); CALCIUM 9.5 mg/dL (8.4-10.2); CREATININE, serum 0.72 mg/dL (0.66-1.25); POTASSIUM 4.4 mmol/L (3.4-5.0)
[2017-05-24 05:07] VITALS: BP 144/87; PULSE 78; TEMP 98.6
[2017-05-24 08:00] VITALS: BP 143/70; PULSE 65; TEMP 97.8
[2017-05-24 13:53] VITALS: BP 155/88; PULSE 81; TEMP 98.5
[2017-05-24 17:24] VITALS: BP 174/89; PULSE 84; TEMP 97.5
[2017-05-24 20:30] VITALS: BP 143/80; PULSE 78; TEMP 97.9
[2017-05-24 23:12] VITALS: BP 105/64; PULSE 73; TEMP 98.8
[2017-05-25 04:45] VITALS: BP 131/89; PULSE 79; TEMP 98.6
[2017-05-25 07:48] VITALS: BP 138/85; PULSE 79; TEMP 98.2
[2017-05-25 12:04] VITALS: BP 164/77; PULSE 78; TEMP 97.5
[2017-05-25 13:29] VITALS: BP 130/70; PULSE 90; TEMP 98.1
[2017-06-01] MEDS ORDERED: CIPRO 500MG TA500 MG PO (06:17)
== END 2017-05-25 16:45 | disposition home or self-care (01) | DRG 696 ==
LOC: COL.ER 03:43 → SURG 04:28
PROVIDERS: Family Medicine
DX: R31.0 Gross hematuria (principal); R33.8 Other retention of urine; J44.9 Chronic obstructive pulmonary disease, unspecified; E11.9 Type 2 diabetes mellitus without complications; I10 Essential (primary) hypertension; Z95.2 Presence of prosthetic heart valve; Z79.84 Long term (current) use of oral hypoglycemic drugs; Z87.891 Personal history of nicotine dependence; Z85.51 Personal history of malignant neoplasm of bladder; Z79.82 Long term (current) use of aspirin
CPT/HCPCS: J7030; J7512

== ENCOUNTER 2017-06-06 09:02 | Emergency (ER) | payer MEDICARE, BC ==
[~2017-06-06] VITALS: Ht 167.6 cm; Wt 118.2 kg
[2017-06-06 09:05] VITALS: BP 174/88; TEMP 98.3
[2017-06-06 10:33] VITALS: PULSE 92
== END 2017-06-06 10:34 | disposition home or self-care (01) ==
LOC: COL.ER 09:02
DX: K59.00 Constipation, unspecified (principal); J44.9 Chronic obstructive pulmonary disease, unspecified; Z87.438 Personal history of other diseases of male genital organs; Z85.51 Personal history of malignant neoplasm of bladder; Z98.890 Other specified postprocedural states

== ENCOUNTER 2017-06-19 10:30 | Emergency (ER) | payer MEDICARE, BC ==
[~2017-06-19] VITALS: Ht 167.6 cm; Wt 122.7 kg
[2017-06-19 10:37] VITALS: BP 162/75; TEMP 98.2
[2017-06-19 11:09] VITALS: PULSE 90
[2017-06-19] MEDS ORDERED: SENOKOT S 50 MG1 TAB PO (11:15)
[2017-06-19] MEDS ORDERED: CEPHALEXIN500 M1 PO (23:33)
== END 2017-06-19 11:24 | disposition home or self-care (01) ==
LOC: COL.ER 10:30
DX: K59.00 Constipation, unspecified (principal); J44.9 Chronic obstructive pulmonary disease, unspecified; E78.5 Hyperlipidemia, unspecified; I10 Essential (primary) hypertension; E11.9 Type 2 diabetes mellitus without complications; Z90.89 Acquired absence of other organs; Z87.891 Personal history of nicotine dependence; Z79.82 Long term (current) use of aspirin

== ENCOUNTER 2017-06-19 21:53 | Emergency (ER) | payer MEDICARE, BC ==
[~2017-06-19] VITALS: Ht 167.6 cm; Wt 125.0 kg
[~2017-06-19 21:53] MED LIST changes: +SENOKOT S 50 MG1 TAB PO
[2017-06-19 22:00] VITALS: BP 185/87; TEMP 98
[2017-06-19 22:34] LABS: COLLECTION METHOD CLEAN CATCH
[2017-06-19 22:39] LABS: MUCOUS Present /lpf; PH 5 (5-8); SQUAMOUS EPITHELIAL 0-2 /hpf; URINE APPEARANCE Hazy; URINE BACTERIA None Seen /hpf; URINE BILIRUBIN Negative (NEGATIVE); URINE BLOOD 1+ (NEGATIVE); URINE COLOR Yellow; URINE GLUCOSE 3+ (NEGATIVE); URINE KETONE Trace (NEGATIVE); URINE LEUKOCYTE ESTERASE 2+ (NEGATIVE); URINE PROTEIN(semi-quant) 2+ (NEGATIVE); URINE RBC 20-50 /hpf; URINE UROBILINOGEN Negative (NEGATIVE)
[2017-06-19 22:40] LABS: URINE WBC 20-50 /hpf
[2017-06-19 22:51] LABS: BASO # 0.1 (0.0-0.2); BASO % 0.8 % (0.0-2.0); EOS # 0.3 (0.0-0.7); EOS % 5.3 % (0-4.0); GRAN # 4.1 (1.4-6.5); HEMATOCRIT 41.6 % (42.0-52.0); HEMOGLOBIN 14.4 g/dl (13.5-18.0); LYMPH # 1.3 (1.2-3.4); LYMPH % 19.4 % (20.0-51.0); MEAN CELL VOLUME 95 fl (80.0-100.0); MEAN CORPUSCULAR HEMOGLOBIN 33 pg (27.0-31.0); MEAN CORPUSCULAR HGB CONC 35 g/dl (33.0-37.0); MEAN PLATELET VOLUME 9.8 fl (7.4-10.4); MONO # 0.6 (0.1-0.6); PLATELET COUNT 174 K/mm3 (130-400); RED BLOOD COUNT 4.36 M/mm3 (4.20-5.60); WHITE BLOOD COUNT 6.4 K/mm3 (4.8-10.8)
[2017-06-19 23:07] LABS: ALBUMIN 4.3 gm/dL (3.5-5.0); BILIRUBIN,TOTAL 0.7 mg/dL (0.0-1.0); CALCIUM 9.2 mg/dL (8.4-10.2); CREATININE, serum 0.87 mg/dL (0.66-1.25); POTASSIUM 4.4 mmol/L (3.4-5.0); TOTAL PROTEIN 7.3 gm/dL (6.4-8.2)
[2017-06-19] MEDS ORDERED: CEPHALEXIN500 M1 PO (23:33)
[2017-06-19 23:56] VITALS: PULSE 75
== END 2017-06-19 23:50 | disposition home or self-care (01) ==
LOC: COL.ER 21:53
PROVIDERS: Emergency Medicine
DX: K59.00 Constipation, unspecified (principal); N39.0 Urinary tract infection, site not specified; E11.9 Type 2 diabetes mellitus without complications; J44.9 Chronic obstructive pulmonary disease, unspecified; Z85.51 Personal history of malignant neoplasm of bladder; Z87.438 Personal history of other diseases of male genital organs; Z79.84 Long term (current) use of oral hypoglycemic drugs; Z79.82 Long term (current) use of aspirin; Z90.89 Acquired absence of other organs; Z98.890 Other specified postprocedural states

== ENCOUNTER 2017-07-12 04:22 | Emergency (ER) | payer MEDICARE, BC ==
[~2017-07-12] VITALS: Ht 167.6 cm; Wt 125.0 kg
[~2017-07-12 04:22] MED LIST changes: +CEPHALEXIN500 M1 PO
[2017-07-12 04:26] VITALS: TEMP 97.9
[2017-07-12 05:27] LABS: BASO # 0.1 (0.0-0.2); BASO % 0.8 % (0.0-2.0); EOS # 0.4 (0.0-0.7); EOS % 5.1 % (0-4.0); GRAN # 5.3 (1.4-6.5); GRAN % 67.1 % (42.2-75.2); HEMATOCRIT 42.7 % (42.0-52.0); HEMOGLOBIN 14.9 g/dl (13.5-18.0); LYMPH # 1.4 (1.2-3.4); LYMPH % 17.1 % (20.0-51.0); MEAN CELL VOLUME 94 fl (80.0-100.0); MEAN CORPUSCULAR HEMOGLOBIN 33 pg (27.0-31.0); MEAN CORPUSCULAR HGB CONC 35 g/dl (33.0-37.0); MONO # 0.7 (0.1-0.6); MONO % 9.4 % (1.7-9.3); PLATELET COUNT 141 K/mm3 (130-400); RED BLOOD COUNT 4.53 M/mm3 (4.20-5.60); WHITE BLOOD COUNT 7.9 K/mm3 (4.8-10.8)
[2017-07-12 05:47] LABS: ALBUMIN 4.2 gm/dL (3.5-5.0); BILIRUBIN,TOTAL 0.7 mg/dL (0.0-1.0); CALCIUM 9.2 mg/dL (8.4-10.2); CREATININE, serum 0.77 mg/dL (0.66-1.25); POTASSIUM 4.1 mmol/L (3.4-5.0); TOTAL PROTEIN 6.7 gm/dL (6.4-8.2)
[2017-07-12 05:59] LABS: TROPONIN-I 0.02 ng/mL (0.000-0.034)
[2017-07-12] MEDS ORDERED: DOXYCYCLINE 10100 MG PO (07:25)
[2017-07-12 08:25] VITALS: BP 134/77; PULSE 87
== END 2017-07-12 08:30 | disposition home or self-care (01) ==
LOC: COL.ER 04:22
PROVIDERS: Emergency Medicine
DX: J44.1 Chronic obstructive pulmonary disease with (acute) exacerbation (principal); I48.91 Unspecified atrial fibrillation; Z79.82 Long term (current) use of aspirin; Z79.84 Long term (current) use of oral hypoglycemic drugs
CPT/HCPCS: J1100

== ENCOUNTER 2017-07-19 04:45 | Emergency (ER) | payer MEDICARE, BC ==
[~2017-07-19] VITALS: Ht 167.6 cm; Wt 122.7 kg
[2017-07-19 04:49] VITALS: BP 140/73; TEMP 97.8
[2017-07-19] MEDS ORDERED: MIRALAX 255 GM255 GM PO (05:59)
[2017-07-19] MEDS ORDERED: DULCOLAX S10 MG/SUPP RC (05:59)
[2017-07-19 06:13] VITALS: PULSE 82
== END 2017-07-19 06:13 | disposition home or self-care (01) ==
LOC: COL.ER 04:45
DX: K59.00 Constipation, unspecified (principal); N40.0 Benign prostatic hyperplasia without lower urinary tract symptoms; E11.9 Type 2 diabetes mellitus without complications; J44.9 Chronic obstructive pulmonary disease, unspecified; Z85.51 Personal history of malignant neoplasm of bladder; Z79.82 Long term (current) use of aspirin; Z79.84 Long term (current) use of oral hypoglycemic drugs

== ENCOUNTER 2017-07-20 22:34 | Emergency (ER) | payer MEDICARE, BC ==
[~2017-07-20] VITALS: Ht 167.6 cm; Wt 79.5 kg
[~2017-07-20 22:34] MED LIST changes: +DULCOLAX S10 MG/SUPP RC; +MIRALAX 255 GM255 GM PO
[2017-07-20 22:36] VITALS: BP 153/79; TEMP 97.6
[2017-07-21 00:04] VITALS: PULSE 92
== END 2017-07-21 00:04 | disposition home or self-care (01) ==
LOC: COL.ER 22:34
DX: K59.00 Constipation, unspecified (principal); I48.91 Unspecified atrial fibrillation; J44.9 Chronic obstructive pulmonary disease, unspecified; G47.33 Obstructive sleep apnea (adult) (pediatric); Z79.82 Long term (current) use of aspirin

== ENCOUNTER 2017-08-14 04:06 | Emergency (ER) | payer MEDICARE, BC ==
[~2017-08-14] VITALS: Ht 167.6 cm; Wt 122.7 kg
[2017-08-14 04:19] VITALS: TEMP 97.6
[2017-08-14 04:35] LABS: ALLEN TEST YES; ALLENS TEST RESULT PASS; ARTERIAL BLD GAS O2 SATURATION 90.7 % (92-100); ARTERIAL BLD GAS TCO2 CT 28.7; ARTERIAL BLOOD GAS BASE EXCESS 2.7 (-2-2); ARTERIAL BLOOD GAS HCO3 27.4 meq/L (22-26); ARTERIAL BLOOD GAS PO2 59.6 mmHg (80-100); ARTERIAL BLOOD GAS pH 7.43 (7.35-7.45); ATS? YES; OXYHEMOGLOBIN 89.2 %
[2017-08-14 04:43] LABS: BASO # 0.1 (0.0-0.2); BASO % 0.7 % (0.0-2.0); EOS # 0.4 (0.0-0.7); EOS % 4.4 % (0-4.0); GRAN # 6.2 (1.4-6.5); GRAN % 69.4 % (42.2-75.2); HEMATOCRIT 43.1 % (42.0-52.0); HEMOGLOBIN 14.9 g/dl (13.5-18.0); LYMPH # 1.3 (1.2-3.4); LYMPH % 14.1 % (20.0-51.0); MEAN CELL VOLUME 94 fl (80.0-100.0); MEAN CORPUSCULAR HEMOGLOBIN 33 pg (27.0-31.0); MEAN CORPUSCULAR HGB CONC 35 g/dl (33.0-37.0); MEAN PLATELET VOLUME 9.8 fl (7.4-10.4); MONO % 11.1 % (1.7-9.3); PLATELET COUNT 147 K/mm3 (130-400); RED BLOOD COUNT 4.59 M/mm3 (4.20-5.60); WHITE BLOOD COUNT 8.9 K/mm3 (4.8-10.8)
[2017-08-14 04:52] LABS: INR 1.1 (0.8-3.0)
[2017-08-14 04:53] LABS: ADJUSTED CALCIUM 8.9 mg/dL (8.4-10.2); ALBUMIN 4.1 gm/dL (3.5-5.0); CREATININE, serum 0.82 mg/dL (0.66-1.25); MAGNESIUM 1.8 mg/dL (1.6-2.3); POTASSIUM 4.3 mmol/L (3.4-5.0); TOTAL PROTEIN 6.9 gm/dL (6.4-8.2)
[2017-08-14 04:55] LABS: PARTIAL THROMBOPLASTIN TIME 31.9 SECONDS (26.0-37.0); THEOPHYLLINE 3.1 ug/mL (10.0-20.0)
[2017-08-14 05:04] LABS: TROPONIN-I 0.023 ng/mL (0.000-0.034)
[2017-08-14] MEDS ORDERED: ZITHROMAX 250M250 MG PO (06:58)
[2017-08-14 07:15] VITALS: BP 140/86; PULSE 88
== END 2017-08-14 07:20 | disposition home or self-care (01) ==
LOC: COL.ER 04:06
PROVIDERS: Emergency Medicine
DX: J44.1 Chronic obstructive pulmonary disease with (acute) exacerbation (principal); E11.9 Type 2 diabetes mellitus without complications; I10 Essential (primary) hypertension; G47.33 Obstructive sleep apnea (adult) (pediatric); E66.01 Morbid (severe) obesity due to excess calories; Z68.41 Body mass index [BMI] 40.0-44.9, adult; Z79.84 Long term (current) use of oral hypoglycemic drugs; Z79.82 Long term (current) use of aspirin; Z90.89 Acquired absence of other organs
CPT/HCPCS: J8540

== ENCOUNTER 2017-09-01 09:49 | Inpatient (IN) | payer MEDICARE, BC ==
[~2017-09-01] VITALS: Ht 167.6 cm; Wt 113.6 kg
[2017-09-01 10:42] LABS: COLLECTION METHOD CLEAN CATCH
[2017-09-01 10:45] LABS: BASO % 0.7 % (0.0-2.0); EOS # 0.2 (0.0-0.7); EOS % 3.6 % (0-4.0); GRAN % 65.4 % (42.2-75.2); HEMATOCRIT 46.4 % (42.0-52.0); HEMOGLOBIN 16.3 g/dl (13.5-18.0); LYMPH # 0.9 (1.2-3.4); LYMPH % 15.4 % (20.0-51.0); MEAN CELL VOLUME 93 fl (80.0-100.0); MEAN CORPUSCULAR HEMOGLOBIN 33 pg (27.0-31.0); MEAN CORPUSCULAR HGB CONC 35 g/dl (33.0-37.0); MEAN PLATELET VOLUME 9.9 fl (7.4-10.4); MONO # 0.9 (0.1-0.6); MONO % 14.6 % (1.7-9.3); PLATELET COUNT 186 K/mm3 (130-400); REDCELL DISTRIBUTION WIDTH-CV 14.9 % (11.5-14.5)
[2017-09-01 11:01] LABS: ALBUMIN 4.5 gm/dL (3.5-5.0); BILIRUBIN,TOTAL 1.2 mg/dL (0.0-1.0); C-REACTIVE PROTEIN 2.9 mg/dL (0.0-0.9); CALCIUM 9.4 mg/dL (8.4-10.2); CREATININE, serum 0.91 mg/dL (0.66-1.25); MUCOUS Present /lpf; PH 5 (5-8); POTASSIUM 4.2 mmol/L (3.4-5.0); TOTAL PROTEIN 7.2 gm/dL (6.4-8.2); URINE APPEARANCE Hazy; URINE BACTERIA None Seen /hpf; URINE BILIRUBIN Negative (NEGATIVE); URINE BLOOD Negative (NEGATIVE); URINE COLOR Amber; URINE GLUCOSE Negative (NEGATIVE); URINE KETONE Negative (NEGATIVE); URINE LEUKOCYTE ESTERASE 1+ (NEGATIVE); URINE NITRATE Negative (NEGATIVE); URINE PROTEIN(semi-quant) 2+ (NEGATIVE)
[2017-09-01 16:52] VITALS: BP 144/93; PULSE 104; TEMP 98.9
[2017-09-01 21:55] VITALS: BP 154/74; PULSE 84; TEMP 97.7
[2017-09-02 01:34] VITALS: BP 107/58; PULSE 68; TEMP 98.4
[2017-09-02 05:43] VITALS: BP 105/67; PULSE 85; TEMP 98.2
[2017-09-02 06:57] LABS: BASO % 0.7 % (0.0-2.0); EOS # 0.3 (0.0-0.7); EOS % 5.9 % (0-4.0); GRAN # 3.5 (1.4-6.5); GRAN % 60.4 % (42.2-75.2); HEMOGLOBIN 15.1 g/dl (13.5-18.0); LYMPH # 1.1 (1.2-3.4); LYMPH % 19.1 % (20.0-51.0); MEAN CELL VOLUME 94 fl (80.0-100.0); MEAN CORPUSCULAR HEMOGLOBIN 33 pg (27.0-31.0); MEAN CORPUSCULAR HGB CONC 35 g/dl (33.0-37.0); MONO # 0.8 (0.1-0.6); MONO % 13.6 % (1.7-9.3); PLATELET COUNT 178 K/mm3 (130-400)
[2017-09-02 07:19] LABS: CALCIUM 8.7 mg/dL (8.4-10.2); CREATININE, serum 0.92 mg/dL (0.66-1.25); POTASSIUM 3.7 mmol/L (3.4-5.0)
[2017-09-02 10:00] VITALS: BP 140/84; PULSE 85; TEMP 97.5
[2017-09-02 15:51] VITALS: BP 150/82; PULSE 76; TEMP 98.4
[2017-09-02 22:19] VITALS: BP 136/73; PULSE 68; TEMP 98.5
[2017-09-03 02:05] VITALS: BP 130/44; PULSE 68; TEMP 97.9
[2017-09-03 05:05] VITALS: BP 141/70; PULSE 83; TEMP 97.7
[2017-09-03 07:53] LABS: BASO % 0.5 % (0.0-2.0); EOS # 0.3 (0.0-0.7); EOS % 4.6 % (0-4.0); GRAN # 3.7 (1.4-6.5); GRAN % 65.5 % (42.2-75.2); HEMATOCRIT 40.8 % (42.0-52.0); HEMOGLOBIN 13.9 g/dl (13.5-18.0); LYMPH % 17.4 % (20.0-51.0); MEAN CELL VOLUME 95 fl (80.0-100.0); MEAN CORPUSCULAR HEMOGLOBIN 32 pg (27.0-31.0); MEAN CORPUSCULAR HGB CONC 34 g/dl (33.0-37.0); MEAN PLATELET VOLUME 10.2 fl (7.4-10.4); MONO # 0.7 (0.1-0.6); MONO % 11.6 % (1.7-9.3); PLATELET COUNT 156 K/mm3 (130-400); RED BLOOD COUNT 4.29 M/mm3 (4.20-5.60); REDCELL DISTRIBUTION WIDTH-CV 15.3 % (11.5-14.5)
[2017-09-03 08:10] LABS: CALCIUM 8.5 mg/dL (8.4-10.2); CREATININE, serum 1.01 mg/dL (0.66-1.25); POTASSIUM 3.6 mmol/L (3.4-5.0)
[2017-09-03 11:06] VITALS: BP 145/70; PULSE 84; TEMP 97.8
[2017-09-03 14:07] VITALS: BP 112/83; PULSE 70; TEMP 98.2
[2017-09-03 17:47] VITALS: BP 114/57; PULSE 53; TEMP 98
[2017-09-03 21:53] VITALS: BP 127/85; PULSE 119; TEMP 98.4
[2017-09-04] VITALS (276 sets, daily range): BP systolic 106–154; BP diastolic 54–94; PULSE 59–119; TEMP 97.4–98.4; O2SAT 69–100
[2017-09-04 07:42] LABS: BASO % 0.4 % (0.0-2.0); EOS # 0.3 (0.0-0.7); GRAN # 4.7 (1.4-6.5); GRAN % 68.4 % (42.2-75.2); HEMATOCRIT 41.6 % (42.0-52.0); HEMOGLOBIN 14.3 g/dl (13.5-18.0); LYMPH # 1.1 (1.2-3.4); LYMPH % 16.4 % (20.0-51.0); MEAN CELL VOLUME 96 fl (80.0-100.0); MEAN CORPUSCULAR HEMOGLOBIN 33 pg (27.0-31.0); MEAN CORPUSCULAR HGB CONC 34 g/dl (33.0-37.0); MEAN PLATELET VOLUME 10.3 fl (7.4-10.4); MONO # 0.7 (0.1-0.6); MONO % 10.2 % (1.7-9.3); PLATELET COUNT 151 K/mm3 (130-400); RED BLOOD COUNT 4.35 M/mm3 (4.20-5.60); REDCELL DISTRIBUTION WIDTH-CV 15.4 % (11.5-14.5)
[2017-09-04 07:53] LABS: CALCIUM 8.4 mg/dL (8.4-10.2); CREATININE, serum 0.91 mg/dL (0.66-1.25); POTASSIUM 3.8 mmol/L (3.4-5.0)
[2017-09-04 18:50] LABS: ARTERIAL BLD GAS O2 SATURATION 97.2 % (92-100); ARTERIAL BLD GAS TCO2 CT 20.3; ARTERIAL BLOOD GAS BASE EXCESS -8.4 (-2-2); ARTERIAL BLOOD GAS HCO3 18.9 meq/L (22-26); ARTERIAL BLOOD GAS PCO2 45.3 mmHg (35-45); ARTERIAL BLOOD GAS PO2 110.3 mmHg (80-100); ARTERIAL BLOOD GAS pH 7.24 (7.35-7.45)
[2017-09-05] VITALS (642 sets, daily range): BP systolic 99–127; BP diastolic 59–90; PULSE 89–102; TEMP 97.6–98.8; O2SAT 79–100
[2017-09-05 06:00] LABS: ALBUMIN 2.9 gm/dL (3.5-5.0); CALCIUM 7.5 mg/dL (8.4-10.2); CREATININE, serum 1.41 mg/dL (0.66-1.25); PHOSPHOROUS 5.3 mg/dL (2.5-4.5); POTASSIUM 4.5 mmol/L (3.4-5.0)
[2017-09-05 06:18] LABS: BASO # 0.1 (0.0-0.2); BASO % 0.4 % (0.0-2.0); GRAN # 12.4 (1.4-6.5); GRAN % 87.1 % (42.2-75.2); LYMPH # 0.5 (1.2-3.4); LYMPH % 3.3 % (20.0-51.0); MEAN CELL VOLUME 98 fl (80.0-100.0); MEAN CORPUSCULAR HGB CONC 34 g/dl (33.0-37.0); MEAN PLATELET VOLUME 10.6 fl (7.4-10.4); MONO # 1.3 (0.1-0.6); MONO % 8.8 % (1.7-9.3); PLATELET COUNT 206 K/mm3 (130-400); REDCELL DISTRIBUTION WIDTH-CV 16.1 % (11.5-14.5)
[2017-09-05 06:23] LABS: HEMATOCRIT 35.1 % (42.0-52.0); MEAN CORPUSCULAR HEMOGLOBIN 33 pg (27.0-31.0)
[2017-09-06 01:02] VITALS: BP 98/68; PULSE 83; TEMP 98.4
[2017-09-06 05:28] VITALS: BP 124/69; PULSE 89; TEMP 97.5
[2017-09-06 08:00] LABS: CALCIUM 7.7 mg/dL (8.4-10.2); CREATININE, serum 1.65 mg/dL (0.66-1.25); MAGNESIUM 1.8 mg/dL (1.6-2.3); POTASSIUM 4.1 mmol/L (3.4-5.0)
[2017-09-06 08:08] LABS: MEAN CELL VOLUME 99 fl (80.0-100.0); MEAN CORPUSCULAR HGB CONC 34 g/dl (33.0-37.0); MEAN PLATELET VOLUME 10.6 fl (7.4-10.4); PLATELET COUNT 160 K/mm3 (130-400); RED BLOOD COUNT 2.71 M/mm3 (4.20-5.60); REDCELL DISTRIBUTION WIDTH-CV 16.7 % (11.5-14.5)
[2017-09-06 08:10] LABS: HEMATOCRIT 26.7 % (42.0-52.0); MEAN CORPUSCULAR HEMOGLOBIN 33 pg (27.0-31.0)
[2017-09-06 09:38] VITALS: BP 120/69; PULSE 93; TEMP 97.8
[2017-09-06 09:41] LABS: BAND 25 % (0-10); LYMPHOCYTE 1 % (20.0-51.0); NEUTROPHILS 69 % (42.0-75.2); PLATELET ESTIMATE NORMAL (NORMAL)
[2017-09-06 09:45] LABS: ANISOCYTOSIS 1+
[2017-09-06 13:36] VITALS: BP 94/41; PULSE 80; TEMP 98.7
[2017-09-06 15:18] LABS: HEMATOCRIT 26.2 % (42.0-52.0)
[2017-09-06 18:15] VITALS: BP 101/53; PULSE 89; TEMP 98.4
[2017-09-06 20:00] VITALS: BP 112/56; PULSE 92; TEMP 98
[2017-09-06 22:05] LABS: HEMOGLOBIN 9.2 g/dl (13.5-18.0)
[2017-09-07] VITALS: BP 109/60; PULSE 84; TEMP 98.3
[2017-09-07 06:00] VITALS: BP 108/43; PULSE 76; TEMP 97.5
[2017-09-07 07:30] LABS: BASO % 0.2 % (0.0-2.0); EOS % 0.2 % (0-4.0); GRAN # 8.9 (1.4-6.5); GRAN % 86.1 % (42.2-75.2); LYMPH # 0.3 (1.2-3.4); LYMPH % 3.3 % (20.0-51.0); MEAN CELL VOLUME 97 fl (80.0-100.0); MEAN CORPUSCULAR HGB CONC 33 g/dl (33.0-37.0); MEAN PLATELET VOLUME 10.4 fl (7.4-10.4); MONO # 0.9 (0.1-0.6); PLATELET COUNT 168 K/mm3 (130-400); RED BLOOD COUNT 2.74 M/mm3 (4.20-5.60); REDCELL DISTRIBUTION WIDTH-CV 16.5 % (11.5-14.5)
[2017-09-07 07:42] LABS: HEMATOCRIT 26.7 % (42.0-52.0); HEMOGLOBIN 8.9 g/dl (13.5-18.0); MEAN CORPUSCULAR HEMOGLOBIN 32 pg (27.0-31.0)
[2017-09-07 07:43] LABS: CALCIUM 8.4 mg/dL (8.4-10.2); CREATININE, serum 1.12 mg/dL (0.66-1.25); POTASSIUM 3.7 mmol/L (3.4-5.0)
[2017-09-07 10:02] VITALS: BP 131/62; PULSE 97; TEMP 98
[2017-09-07 14:51] VITALS: BP 129/57; PULSE 91; TEMP 97.6
[2017-09-07 18:27] VITALS: BP 144/78; PULSE 92; TEMP 98.3
[2017-09-07 21:17] VITALS: BP 149/76; PULSE 93; TEMP 98.5
[2017-09-08 00:11] VITALS: BP 146/98; PULSE 97; TEMP 97.9
[2017-09-08 03:51] VITALS: BP 146/93; PULSE 98; TEMP 97.9
[2017-09-08 08:31] LABS: BASO % 0.2 % (0.0-2.0); EOS % 0.2 % (0-4.0); GRAN # 8.6 (1.4-6.5); GRAN % 83.4 % (42.2-75.2); LYMPH # 0.4 (1.2-3.4); LYMPH % 3.9 % (20.0-51.0); MEAN CELL VOLUME 99 fl (80.0-100.0); MEAN CORPUSCULAR HGB CONC 33 g/dl (33.0-37.0); MEAN PLATELET VOLUME 9.8 fl (7.4-10.4); MONO # 1.2 (0.1-0.6); MONO % 11.1 % (1.7-9.3); PLATELET COUNT 205 K/mm3 (130-400); RED BLOOD COUNT 2.98 M/mm3 (4.20-5.60); REDCELL DISTRIBUTION WIDTH-CV 16.7 % (11.5-14.5)
[2017-09-08 08:32] LABS: HEMATOCRIT 29.4 % (42.0-52.0); HEMOGLOBIN 9.8 g/dl (13.5-18.0); MEAN CORPUSCULAR HEMOGLOBIN 33 pg (27.0-31.0)
[2017-09-08 08:43] LABS: CALCIUM 8.6 mg/dL (8.4-10.2); CREATININE, serum 1.02 mg/dL (0.66-1.25); MAGNESIUM 2.4 mg/dL (1.6-2.3); POTASSIUM 3.9 mmol/L (3.4-5.0)
[2017-09-08 10:02] VITALS: BP 146/64; PULSE 91; TEMP 98
[2017-09-08 14:00] VITALS: BP 123/62; PULSE 74; TEMP 97.5
[2017-09-08 18:08] VITALS: BP 121/63; PULSE 91; TEMP 96.9
[2017-09-08 22:23] VITALS: BP 115/45; PULSE 87; TEMP 97.4
[2017-09-09] VITALS (7 sets, daily range): BP systolic 105–127; BP diastolic 40–65; PULSE 48–92; TEMP 97.4–98.7
[2017-09-09 06:49] LABS: MEAN CELL VOLUME 100 fl (80.0-100.0); MEAN CORPUSCULAR HGB CONC 33 g/dl (33.0-37.0); MEAN PLATELET VOLUME 9.8 fl (7.4-10.4); PLATELET COUNT 218 K/mm3 (130-400); RED BLOOD COUNT 2.96 M/mm3 (4.20-5.60); REDCELL DISTRIBUTION WIDTH-CV 16.5 % (11.5-14.5)
[2017-09-09 06:51] LABS: HEMOGLOBIN 9.6 g/dl (13.5-18.0); MEAN CORPUSCULAR HEMOGLOBIN 32 pg (27.0-31.0)
[2017-09-09 06:52] LABS: HEMATOCRIT 29.5 % (42.0-52.0)
[2017-09-09 07:15] LABS: CALCIUM 8.3 mg/dL (8.4-10.2); CREATININE, serum 0.98 mg/dL (0.66-1.25); POTASSIUM 3.7 mmol/L (3.4-5.0)
[2017-09-09 07:36] LABS: ANISOCYTOSIS 1+; BAND 44 % (0-10); LYMPHOCYTE 2 % (20.0-51.0); NEUTROPHILS 45 % (42.0-75.2); PLATELET ESTIMATE NORMAL (NORMAL); TOXIC GRANULATION PRESENT
[2017-09-09 07:37] LABS: POLYCHROMASIA 2+
[2017-09-10 00:22] VITALS: BP 134/64; PULSE 82; TEMP 98.4
[2017-09-10 04:39] VITALS: BP 118/90; PULSE 54; TEMP 97.8
[2017-09-10 07:01] LABS: HEMOGLOBIN 9.6 g/dl (13.5-18.0); MEAN CELL VOLUME 99 fl (80.0-100.0); MEAN CORPUSCULAR HEMOGLOBIN 33 pg (27.0-31.0); MEAN CORPUSCULAR HGB CONC 33 g/dl (33.0-37.0); MEAN PLATELET VOLUME 9.8 fl (7.4-10.4); PLATELET COUNT 196 K/mm3 (130-400); RED BLOOD COUNT 2.94 M/mm3 (4.20-5.60); REDCELL DISTRIBUTION WIDTH-CV 16.2 % (11.5-14.5)
[2017-09-10 07:20] LABS: CALCIUM 8.4 mg/dL (8.4-10.2); CREATININE, serum 1.06 mg/dL (0.66-1.25); POTASSIUM 3.3 mmol/L (3.4-5.0)
[2017-09-10 09:17] LABS: ANISOCYTOSIS 1+; BAND 61 % (0-10); LYMPHOCYTE 11 % (20.0-51.0); NEUTROPHILS 26 % (42.0-75.2); PLATELET ESTIMATE NORMAL (NORMAL)
[2017-09-10 09:31] VITALS: BP 115/50; PULSE 94; TEMP 97.8
[2017-09-10 14:39] VITALS: BP 108/52; PULSE 93; TEMP 98.8
[2017-09-10 17:32] VITALS: BP 114/65; PULSE 95; TEMP 99
[2017-09-10 22:09] VITALS: BP 129/64; PULSE 54; TEMP 97.8
[2017-09-11] VITALS (19 sets, daily range): BP systolic 100–116; BP diastolic 47–87; PULSE 76–116; TEMP 97.8–98.9; O2SAT 93–94
[2017-09-11 06:57] LABS: MEAN CELL VOLUME 98 fl (80.0-100.0); MEAN CORPUSCULAR HGB CONC 33 g/dl (33.0-37.0); MEAN PLATELET VOLUME 10.2 fl (7.4-10.4); PLATELET COUNT 242 K/mm3 (130-400); RED BLOOD COUNT 3.32 M/mm3 (4.20-5.60)
[2017-09-11 06:58] LABS: CALCIUM 8.4 mg/dL (8.4-10.2); CREATININE, serum 1.42 mg/dL (0.66-1.25); POTASSIUM 3.3 mmol/L (3.4-5.0)
[2017-09-11 07:14] LABS: HEMATOCRIT 32.5 % (42.0-52.0); HEMOGLOBIN 10.6 g/dl (13.5-18.0); MEAN CORPUSCULAR HEMOGLOBIN 32 pg (27.0-31.0)
[2017-09-11 08:14] LABS: ARTERIAL BLD GAS O2 SATURATION 97.2 % (92-100); ARTERIAL BLD GAS TCO2 CT 23.6; ARTERIAL BLOOD GAS BASE EXCESS -3.2 (-2-2); ARTERIAL BLOOD GAS HCO3 22.4 meq/L (22-26); ARTERIAL BLOOD GAS PCO2 41.9 mmHg (35-45); ARTERIAL BLOOD GAS PO2 108.7 mmHg (80-100); ARTERIAL BLOOD GAS pH 7.35 (7.35-7.45)
[2017-09-11 11:02] LABS: BAND 41 % (0-10); LYMPHOCYTE 10 % (20.0-51.0); NEUTROPHILS 42 % (42.0-75.2)
[2017-09-11 11:03] LABS: PLATELET ESTIMATE NORMAL (NORMAL)
[2017-09-11 11:04] LABS: HYPOCHROMIA 1+
[2017-09-11 20:25] LABS: ARTERIAL BLD GAS O2 SATURATION 98.5 % (92-100); ARTERIAL BLD GAS TCO2 CT 22.9; ARTERIAL BLOOD GAS BASE EXCESS -3.9 (-2-2); ARTERIAL BLOOD GAS HCO3 21.7 meq/L (22-26); ARTERIAL BLOOD GAS PCO2 41.2 mmHg (35-45); ARTERIAL BLOOD GAS pH 7.34 (7.35-7.45)
[2017-09-11 20:26] LABS: ARTERIAL BLOOD GAS PO2 150.8 mmHg (80-100)
[2017-09-11 20:47] LABS: MEAN CELL VOLUME 99 fl (80.0-100.0); MEAN CORPUSCULAR HGB CONC 32 g/dl (33.0-37.0); MEAN PLATELET VOLUME 9.7 fl (7.4-10.4); PLATELET COUNT 294 K/mm3 (130-400); RED BLOOD COUNT 3.45 M/mm3 (4.20-5.60); REDCELL DISTRIBUTION WIDTH-CV 16.1 % (11.5-14.5)
[2017-09-11 20:53] LABS: ANION GAP 9 mmol/L (7-16); BLOOD UREA NITROGEN 51 mg/dL (9-20); CARBON DIOXIDE 24 mmol/L (22-30); CHLORIDE 109 mmol/L (98-107); CREATININE, serum 1.73 mg/dL (0.66-1.25); GLUCOSE 149 mg/dL (74-106); HEMOGLOBIN 10.9 g/dl (13.5-18.0); LIPASE 23 U/L (23-300); MAGNESIUM 2.4 mg/dL (1.6-2.3); MEAN CORPUSCULAR HEMOGLOBIN 32 pg (27.0-31.0); POTASSIUM 3.7 mmol/L (3.4-5.0); SODIUM 142 mmol/L (137-145)
[2017-09-11 20:56] LABS: AMYLASE < 30 U/L (30-110)
[2017-09-11 21:03] LABS: ANISOCYTOSIS 1+; BAND 43 % (0-10); LYMPHOCYTE 19 % (20.0-51.0); NEUTROPHILS 31 % (42.0-75.2); NUCLEATED RED BLOOD CELL 1 (0-6); PLATELET ESTIMATE NORMAL (NORMAL)
[2017-09-11 23:09] LABS: COLLECTION METHOD CLEAN CATCH
[2017-09-11 23:23] LABS: AMORPHOUS CRYSTAL Present /uL; MUCOUS Present /lpf; PH 5 (5-8); URINE APPEARANCE Cloudy; URINE BACTERIA Moderate /hpf; URINE BILIRUBIN Negative (NEGATIVE); URINE BLOOD 2+ (NEGATIVE); URINE COLOR Amber; URINE GLUCOSE Negative (NEGATIVE); URINE KETONE Negative (NEGATIVE); URINE LEUKOCYTE ESTERASE 1+ (NEGATIVE); URINE NITRATE Negative (NEGATIVE); URINE PROTEIN(semi-quant) 2+ (NEGATIVE); URINE RBC >50 /hpf; URINE UROBILINOGEN Negative (NEGATIVE)
[2017-09-12 01:41] LABS: ARTERIAL BLD GAS O2 SATURATION 90.6 % (92-100); ARTERIAL BLD GAS TCO2 CT 21.2; ARTERIAL BLOOD GAS BASE EXCESS -9.7 (-2-2); ARTERIAL BLOOD GAS HCO3 19.4 meq/L (22-26); ARTERIAL BLOOD GAS PO2 74.4 mmHg (80-100)
[2017-09-12 01:42] LABS: ARTERIAL BLOOD GAS pH 7.14 (7.35-7.45)
[2017-09-12 02:00] VITALS: BP 103/56; PULSE 123; TEMP 99
[2017-09-12 02:23] LABS: HEMOGLOBIN 10.4 g/dl (13.5-18.0)
[2017-09-12 02:29] LABS: INR 1.6 (0.8-3.0)
[2017-09-12 02:38] LABS: ALANINE AMINOTRANSFERASE 39 U/L (21-72); ALBUMIN 2.1 gm/dL (3.5-5.0); ALKALINE PHOSPHATASE 74 U/L (50-136); ANION GAP 11 mmol/L (7-16); AST,SGOT 40 U/L (15-37); BILIRUBIN,TOTAL 0.7 mg/dL (0.0-1.0); BLOOD UREA NITROGEN 56 mg/dL (9-20); CALCIUM 7.3 mg/dL (8.4-10.2); CARBON DIOXIDE 23 mmol/L (22-30); CHLORIDE 111 mmol/L (98-107); CREATININE, serum 2.34 mg/dL (0.66-1.25); GLUCOSE 105 mg/dL (74-106); POTASSIUM 3.7 mmol/L (3.4-5.0); SODIUM 144 mmol/L (137-145); TOTAL PROTEIN 4.6 gm/dL (6.4-8.2)
[2017-09-12 02:46] LABS: SALICYLATE < 1.0 mg/dL
[2017-09-12 02:50] LABS: TROPONIN-I 0.041 ng/mL (0.000-0.034)
== END 2017-09-12 05:00 | disposition expired | DRG 329 ==
LOC: COL.ER 09:49 → SURG 13:33 → ICU 09-02 10:15 → SURG 09-02 10:15 → ICU 09-04 18:00 → SURG 09-05 16:50 → ICU 09-11 22:54
PROVIDERS: Anesthesiology Critical Care Medicine; Emergency Medicine; Family Medicine; Internal Medicine; Nurse Anesthetist, Certified Registered; Nurse Practitioner; Nurse Practitioner Family; Physician Assistant; Surgery
PROC: 0DBP8ZX Excision of Rectum, Via Natural or Artificial Opening Endoscopic, Diagnostic (ICD-10-PCS; 2017-09-02)
PROC: 0DBN8ZX Excision of Sigmoid Colon, Via Natural or Artificial Opening Endoscopic, Diagnostic (ICD-10-PCS; 2017-09-02)
PROC: 0DTF0ZZ Resection of Right Large Intestine, Open Approach (ICD-10-PCS; principal; 2017-09-04 15:00)
PROC: 0T9B80Z Drainage of Bladder with Drainage Device, Via Natural or Artificial Opening Endoscopic (ICD-10-PCS; 2017-09-06)
DX: C18.4 Malignant neoplasm of transverse colon (principal); A41.9 Sepsis, unspecified organism; K65.1 Peritoneal abscess; R65.21 Severe sepsis with septic shock; J69.0 Pneumonitis due to inhalation of food and vomit; N39.0 Urinary tract infection, site not specified; Z68.41 Body mass index [BMI] 40.0-44.9, adult; S37.32XA Contusion of urethra, initial encounter; K56.7 Ileus, unspecified; N17.9 Acute kidney failure, unspecified; I10 Essential (primary) hypertension; I25.10 Atherosclerotic heart disease of native coronary artery without angina pectoris; E11.65 Type 2 diabetes mellitus with hyperglycemia; J44.9 Chronic obstructive pulmonary disease, unspecified; Z87.891 Personal history of nicotine dependence; Z95.2 Presence of prosthetic heart valve; E66.01 Morbid (severe) obesity due to excess calories; X50.9XXA Other and unspecified overexertion or strenuous movements or postures, initial encounter; D50.0 Iron deficiency anemia secondary to blood loss (chronic); E87.6 Hypokalemia
CPT/HCPCS: 99222-AI; 99231-AI; 99232-AI; 99233-AI; 99239; A4314; G0378; J0171; J0696; J1170; J1250; J1644; J1650; J1815; J1940; J2060; J2250; J2270; J2310; J2370; J2405; J2543; J2704; J3010; J7030; J7040; J7050; Q9967